=== PATIENT | female | born 1950 | race Caucasian/White ===

== ENCOUNTER 2019-08-30 17:29 | Inpatient (IN) | payer MEDICARE, MEDICAID ==
[~2019-08-30] VITALS: Ht 152.4 cm; Wt 64.0 kg
[~2019-08-30 17:29] MED LIST: AMLO2.5T4 PO; ARIP15TA2 PO; DIVA500T52 PO; ZIPR80CA2 PO
[2019-08-30] MEDS ORDERED: LORazepam 2 MG TABLET PO ONE (19:30)
[2019-08-30] MEDS ORDERED: HALOPERIDOL 5 MG TABLET PO ONE (19:30)
[2019-08-30] MEDS ORDERED: METF-446 PO (19:34)
[2019-08-30] MEDS ORDERED: EMPA10TA PO (19:34)
[2019-08-30] MEDS ORDERED: TRAZ-252 PO (19:34)
[2019-08-30] MEDS ORDERED: BIMA12.5OS OU (19:34)
[2019-08-30] MEDS ORDERED: LISI2.5T2 PO (19:34)
[2019-08-30] MEDS ORDERED: MIRA25TA PO (19:34)
[2019-08-30] MEDS ORDERED: TIMO5DRO7 OU (19:34)
[2019-08-30] MEDS ORDERED: EZET10TA13 PO (19:34)
[2019-08-30] MEDS ORDERED: OLAN20TA35 PO (19:34)
[2019-08-30] MEDS ORDERED: CARV3.1231 PO (19:34)
[2019-08-30] MEDS ORDERED: PRAV40TA4 PO (19:34)
[2019-08-30] MEDS ORDERED: DIVA-78 PO (19:34)
[2019-08-30 19:49] LABS: GLUCOSE,POINT OF CARE 202 MG/DL (70-110)
[2019-08-30 19:49] LABS: EOSINOPHILS % (AUTO) 1.1 % (1.0-6.0); HEMATOCRIT 35.8 % (36-46); HEMOGLOBIN 11.6 g/dL (12.0-16.0); LYMPHOCYTES # (AUTO) 1.2 K/uL (1.0-4.8); LYMPHOCYTES % (AUTO) 24.1 % (22.0-44.0); MEAN CORPUSCULAR HEMOGLOBIN 25.7 pg (26.0-34.0); MEAN CORPUSCULAR HGB CONC 32.4 G/dL (31.0-37.0); MEAN CORPUSCULAR VOLUME 79 fL (80-100); MONOCYTES # (AUTO) 0.4 K/uL (0.1-1.0); MONOCYTES % (AUTO) 8.5 % (2.0-9.0); NEUTROPHILS # (AUTO) 3.3 K/uL (1.8-7.7); NEUTROPHILS % (AUTO) 65.3 % (40.0-70.0); PLATELET COUNT (AUTO) 290 K/uL (150-450); RED BLOOD CELL COUNT(AUTO) 4.51 MIL/uL (4.00-5.20); RED CELL DISTRIBUTION WIDTH 15.7 % (11.5-14.5)
[2019-08-30 20:18] LABS: ALANINE AMINOTRANSFERASE 42 U/L (12-78); ALBUMIN 3.3 g/dL (3.4-5.0); ALKALINE PHOSPHATASE 97 U/L (46-116); ANION GAP 11 mmol/L (8-16); ASPARTATE AMINOTRANSFERASE 33 U/L (15-37); BILIRUBIN,TOTAL 0.3 mg/dL (0.1-1.0); CALCIUM, TOTAL 8.8 mg/dL (8.8-10.5); CARBON DIOXIDE 25 mmol/L (22-29); CHLORIDE 102 mmol/L (98-107); CREATININE 0.75 mg/dL (0.60-1.30); GLOMERULAR FILTR. RATE CALC > 60 mL/min (>60); GLUCOSE,RANDOM 206 mg/dL (70-110); SODIUM SERUM 138 mmol/L (136-145); TOTAL PROTEIN, SERUM 7.1 g/dL (6.4-8.2); UREA NITROGEN, BLOOD 23 mg/dL (7-18)
[2019-08-30 20:39] LABS: VALPROIC ACID < 3 mcg/mL (50-100)
[2019-08-31] MEDS ORDERED: ONDANSETRON HCL 4 MG TABLET PO PRN (10:15)
[2019-08-31] MEDS ORDERED: ALBUTEROL SULFATE HFA 90 MCG/PUFF 8 GM INHALER IH PRN (10:15)
[2019-08-31] MEDS ORDERED: LOPERAMIDE HCL 2 MG CAPSULE PO PRN (10:15)
[2019-08-31] MEDS ORDERED: CloNIDine HCL 0.1 MG TABLET PO PRN (10:15)
[2019-08-31] MEDS ORDERED: DOCUSATE SODIUM 100 MG CAPSULE PO PRN (10:15)
[2019-08-31] MEDS ORDERED: MAGNESIUM HYDROXIDE SUSPENSION 30 ML UDCUP PO PRN (10:15)
[2019-08-31] MEDS ORDERED: NICOTINE 14 MG/24 HOUR PATCH TD PRN (10:15)
[2019-08-31] MEDS ORDERED: PETROLATUM,WHITE 28 GM JELLY TP PRN (10:15)
[2019-08-31 11:27] VITALS: BP 139/94
[2019-08-31 11:44] VITALS: BP 139/94
[2019-08-31] MEDS: DIVALPROEX SODIUM 500 MG DR TABLET PO SCH ×2 (13:10→20:16)
[2019-08-31] MEDS: LISINOPRIL 5 MG TABLET PO SCH (13:10)
[2019-08-31] MEDS ORDERED: PNEUMOCOCCAL VACCINE POLYVALENT 0.5 ML VIAL [PPSV23] IM ONE (13:30)
[2019-08-31] MEDS ORDERED: POTASSIUM CHLORIDE 20 MEQ ER TABLET PO ONE (15:00)
[2019-08-31] MEDS ORDERED: DEXTROSE 50%-WATER 25 GM/50 ML SYRINGE IVP PRN (15:30)
[2019-08-31] MEDS: ACETAMINOPHEN 325 MG TABLET PO PRN (16:19)
[2019-08-31 16:24] VITALS: BP 140/95
[2019-08-31 16:29] LABS: GLUCOMETER DEV NAME(LOC) 3E.I 2; GLUCOSE,POINT OF CARE 386 MG/DL (70-110)
[2019-08-31] MEDS: TIMOLOL MALEATE 0.5% 5 ML OPHTHALMIC SOLUTION OU SCH (17:14)
[2019-08-31] MEDS: BIMATOPROST 0.01% 2.5 ML OPHTHALMIC SOLUTION OU SCH (17:14)
[2019-08-31] MEDS: INSULIN LISPRO 100 UNITS/ML SQ PRN ×2 (17:16→20:20)
[2019-08-31] MEDS: MetFORMIN HCL 500 MG TABLET PO SCH (17:28)
[2019-08-31] MEDS: TraZODone HCL 50 MG TABLET PO SCH (20:16)
[2019-08-31] MEDS: PRAVASTATIN SODIUM 40 MG TABLET PO SCH (20:16)
[2019-08-31] MEDS: OLANZapine 10 MG TABLET PO SCH (20:16)
[2019-08-31 20:26] LABS: GLUCOMETER DEV NAME(LOC) 3E.I 2; GLUCOSE,POINT OF CARE 235 MG/DL (70-110)
[2019-08-31 21:51] VITALS: BP 140/95
[2019-09-01] MEDS: MAG HYDROX/AL HYDROX/SIMETH ES 30 ML SUSPENSION UDCUP PO PRN ×2 (05:42→17:05)
[2019-09-01 05:51] LABS: GLUCOMETER DEV NAME(LOC) 3E.I 2; GLUCOSE,POINT OF CARE 241 MG/DL (70-110)
[2019-09-01] MEDS: INSULIN LISPRO 100 UNITS/ML SQ PRN ×3 (06:40→20:48)
[2019-09-01] MEDS: MetFORMIN HCL 500 MG TABLET PO SCH ×2 (06:46→16:26)
[2019-09-01] MEDS: CARVEDILOL 3.125 MG TABLET PO SCH (06:46)
[2019-09-01 07:37] LABS: CHOL/HDL RATIO 1.9 (3.9-5.7)
[2019-09-01 08:00] VITALS: BP 142/94
[2019-09-01] MEDS: LISINOPRIL 5 MG TABLET PO SCH (08:47)
[2019-09-01] MEDS: DIVALPROEX SODIUM 500 MG DR TABLET PO SCH ×2 (08:47→20:29)
[2019-09-01] MEDS: TIMOLOL MALEATE 0.5% 5 ML OPHTHALMIC SOLUTION OU SCH ×2 (08:48→16:26)
[2019-09-01] MEDS: EZETIMIBE 10 MG TABLET PO SCH (08:48)
[2019-09-01] MEDS: BIMATOPROST 0.01% 2.5 ML OPHTHALMIC SOLUTION OU SCH ×2 (08:49→16:26)
[2019-09-01] MEDS ORDERED: [UNRECOGNIZED DRUG - OTHER] PO SCH (09:00)
[2019-09-01] MEDS: QUEtiapine FUMARATE 100 MG TABLET PO PRN (10:16)
[2019-09-01 10:27] LABS: APPEARANCE,URINE CLEAR (CLEAR); BILIRUBIN,URINE NEGATIVE (NEGATIVE); GLUCOSE, URINE (UA) >=1000 mg/dL (NEGATIVE); KETONES,URINE NEGATIVE (NEGATIVE); LEUKOCYTE ESTERASE ,URINE NEGATIVE (NEGATIVE); NITRATE,URINE NEGATIVE (NEGATIVE); OCCULT BLOOD,URINE NEGATIVE (NEGATIVE); PH,URINE 5.5 (5.0-8.0); PROTEIN,URINE NEGATIVE (NEGATIVE); UROBILINOGEN,URINE 0.2 mg/dL (<=1.0)
[2019-09-01 10:37] LABS: AMPHET/METH SCREEN,URINE NEGATIVE (NEGATIVE); BARBITURATE SCREEN, URINE NEGATIVE (NEGATIVE); BENZODIAZEPINES SCREEN,URINE NEGATIVE (NEGATIVE); CANNABINOID SCREEN,URINE NEGATIVE (NEGATIVE); COCAINE SCREEN,URINE NEGATIVE (NEGATIVE); METHADONE SCREEN, URINE NEGATIVE (NEGATIVE); OPIATE SCREEN,URINE NEGATIVE (NEGATIVE)
[2019-09-01 10:38] LABS: PHENCYCLIDINE SCREEN,URINE NEGATIVE (NEGATIVE)
[2019-09-01 10:47] LABS: BACTERIA,URINE None Seen /HPF (None Seen); RBC,URINE None Seen /HPF (0-2); SQUAMOUS EPITHELIAL CELL,UR Few /LPF (None Seen); WBC,URINE None Seen /HPF (0-5)
[2019-09-01 10:47] LABS: GLUCOMETER DEV NAME(LOC) 3E.I 2; GLUCOSE,POINT OF CARE 204 MG/DL (70-110)
[2019-09-01 16:02] VITALS: BP 96/57
[2019-09-01] MEDS: TraZODone HCL 50 MG TABLET PO SCH (20:29)
[2019-09-01] MEDS: OLANZapine 10 MG TABLET PO SCH (20:29)
[2019-09-01] MEDS: PRAVASTATIN SODIUM 40 MG TABLET PO SCH (20:29)
[2019-09-01] MEDS: ZOLPIDEM TARTRATE 10 MG TABLET PO PRN (20:31)
[2019-09-01 20:51] LABS: GLUCOMETER DEV NAME(LOC) 3E.I 2; GLUCOSE,POINT OF CARE 232 MG/DL (70-110)
[2019-09-01] MEDS: IBUPROFEN 400 MG TABLET PO PRN (23:09)
[2019-09-01 23:10] VITALS: BP 120/80
[2019-09-02 06:12] LABS: GLUCOMETER DEV NAME(LOC) 3E.I 2; GLUCOSE,POINT OF CARE 243 MG/DL (70-110)
[2019-09-02] MEDS: ACETAMINOPHEN 325 MG TABLET PO PRN ×2 (06:34→17:14)
[2019-09-02] MEDS: CARVEDILOL 3.125 MG TABLET PO SCH (06:37)
[2019-09-02] MEDS: MetFORMIN HCL 500 MG TABLET PO SCH ×2 (06:37→16:43)
[2019-09-02] MEDS: INSULIN LISPRO 100 UNITS/ML SQ PRN ×4 (06:38→21:47)
[2019-09-02] MEDS: DIVALPROEX SODIUM 500 MG DR TABLET PO SCH ×2 (08:25→21:34)
[2019-09-02] MEDS: LISINOPRIL 5 MG TABLET PO SCH (08:25)
[2019-09-02] MEDS: QUEtiapine FUMARATE 100 MG TABLET PO PRN (08:30)
[2019-09-02] MEDS: BIMATOPROST 0.01% 2.5 ML OPHTHALMIC SOLUTION OU SCH ×2 (08:31→16:46)
[2019-09-02] MEDS: TIMOLOL MALEATE 0.5% 5 ML OPHTHALMIC SOLUTION OU SCH ×2 (08:31→16:46)
[2019-09-02] MEDS: EZETIMIBE 10 MG TABLET PO SCH (08:32)
[2019-09-02 10:34] VITALS: BP 136/82
[2019-09-02 12:18] LABS: GLUCOMETER DEV NAME(LOC) 3E.I 2; GLUCOSE,POINT OF CARE 180 MG/DL (70-110)
[2019-09-02 16:23] VITALS: BP 150/90
[2019-09-02 17:10] VITALS: BP 145/87
[2019-09-02 17:20] LABS: GLUCOMETER DEV NAME(LOC) 3E.I 2; GLUCOSE,POINT OF CARE 227 MG/DL (70-110)
[2019-09-02 18:14] VITALS: BP 140/85
[2019-09-02] MEDS: OLANZapine 10 MG TABLET PO SCH (21:34)
[2019-09-02] MEDS: TraZODone HCL 50 MG TABLET PO SCH (21:34)
[2019-09-02] MEDS: PRAVASTATIN SODIUM 40 MG TABLET PO SCH (21:34)
[2019-09-02 21:53] LABS: GLUCOMETER DEV NAME(LOC) 3E.I 2; GLUCOSE,POINT OF CARE 239 MG/DL (70-110)
[2019-09-03] MEDS: IBUPROFEN 400 MG TABLET PO PRN ×2 (01:05→23:55)
[2019-09-03] MEDS: ZOLPIDEM TARTRATE 10 MG TABLET PO PRN ×2 (01:05→23:56)
[2019-09-03 05:48] LABS: GLUCOMETER DEV NAME(LOC) 3E.I 2; GLUCOSE,POINT OF CARE 268 MG/DL (70-110)
[2019-09-03] MEDS: CARVEDILOL 3.125 MG TABLET PO SCH (06:53)
[2019-09-03] MEDS: MetFORMIN HCL 500 MG TABLET PO SCH ×2 (06:53→16:44)
[2019-09-03] MEDS: INSULIN LISPRO 100 UNITS/ML SQ PRN (06:54)
[2019-09-03 07:07] VITALS: BP 156/99
[2019-09-03] MEDS: EZETIMIBE 10 MG TABLET PO SCH (08:51)
[2019-09-03] MEDS: TIMOLOL MALEATE 0.5% 5 ML OPHTHALMIC SOLUTION OU SCH ×2 (08:52→16:43)
[2019-09-03] MEDS: BIMATOPROST 0.01% 2.5 ML OPHTHALMIC SOLUTION OU SCH ×2 (08:52→16:43)
[2019-09-03] MEDS: DIVALPROEX SODIUM 500 MG DR TABLET PO SCH ×2 (08:55→21:00)
[2019-09-03] MEDS: LISINOPRIL 5 MG TABLET PO SCH (08:55)
[2019-09-03] MEDS: LORazepam 2 MG TABLET PO PRN (08:55)
[2019-09-03] MEDS: QUEtiapine FUMARATE 100 MG TABLET PO PRN (08:56)
[2019-09-03 08:58] VITALS: BP 161/106
[2019-09-03 14:22] LABS: GLUCOMETER DEV NAME(LOC) 3E.I 2; GLUCOSE,POINT OF CARE 93 MG/DL (70-110)
[2019-09-03 16:42] VITALS: BP 132/97
[2019-09-03 17:00] LABS: GLUCOMETER DEV NAME(LOC) 3E.I 2; GLUCOSE,POINT OF CARE 111 MG/DL (70-110)
[2019-09-03] MEDS: PRAVASTATIN SODIUM 40 MG TABLET PO SCH (21:00)
[2019-09-03] MEDS: TraZODone HCL 50 MG TABLET PO SCH (21:00)
[2019-09-03] MEDS: OLANZapine 10 MG TABLET PO SCH (21:00)
[2019-09-03 22:02] LABS: GLUCOMETER DEV NAME(LOC) 3E.I 2; GLUCOSE,POINT OF CARE 94 MG/DL (70-110)
[2019-09-03 23:40] VITALS: BP 153/78
[2019-09-04] MEDS: ZOLPIDEM TARTRATE 10 MG TABLET PO PRN (00:17)
[2019-09-04] MEDS: MAG HYDROX/AL HYDROX/SIMETH ES 30 ML SUSPENSION UDCUP PO PRN (03:52)
[2019-09-04 05:58] LABS: GLUCOMETER DEV NAME(LOC) 3E.I 2; GLUCOSE,POINT OF CARE 159 MG/DL (70-110)
[2019-09-04] MEDS: INSULIN LISPRO 100 UNITS/ML SQ PRN ×4 (06:42→20:51)
[2019-09-04] MEDS: MetFORMIN HCL 500 MG TABLET PO SCH ×2 (06:49→17:20)
[2019-09-04] MEDS: CARVEDILOL 3.125 MG TABLET PO SCH (06:49)
[2019-09-04] MEDS: DIVALPROEX SODIUM 500 MG DR TABLET PO SCH ×2 (07:44→21:00)
[2019-09-04] MEDS: LISINOPRIL 5 MG TABLET PO SCH (07:44)
[2019-09-04] MEDS: LORazepam 2 MG TABLET PO PRN ×2 (07:44→17:20)
[2019-09-04] MEDS: QUEtiapine FUMARATE 100 MG TABLET PO PRN (07:44)
[2019-09-04] MEDS: EZETIMIBE 10 MG TABLET PO SCH (07:45)
[2019-09-04] MEDS: BIMATOPROST 0.01% 2.5 ML OPHTHALMIC SOLUTION OU SCH ×2 (07:46→17:19)
[2019-09-04] MEDS: TIMOLOL MALEATE 0.5% 5 ML OPHTHALMIC SOLUTION OU SCH ×2 (07:46→17:19)
[2019-09-04 09:54] VITALS: BP 147/98
[2019-09-04 12:09] LABS: GLUCOMETER DEV NAME(LOC) 3E.I 2; GLUCOSE,POINT OF CARE 183 MG/DL (70-110)
[2019-09-04 16:02] VITALS: BP 144/82
[2019-09-04 17:33] LABS: GLUCOMETER DEV NAME(LOC) 3E.I 2; GLUCOSE,POINT OF CARE 180 MG/DL (70-110)
[2019-09-04] MEDS: OLANZapine 10 MG TABLET PO SCH (21:00)
[2019-09-04] MEDS: TraZODone HCL 50 MG TABLET PO SCH (21:00)
[2019-09-04] MEDS: PRAVASTATIN SODIUM 40 MG TABLET PO SCH (21:00)
[2019-09-04 21:01] LABS: GLUCOMETER DEV NAME(LOC) 3E.I 2; GLUCOSE,POINT OF CARE 224 MG/DL (70-110)
[2019-09-05 05:23] LABS: GLUCOMETER DEV NAME(LOC) 3E.I 2; GLUCOSE,POINT OF CARE 156 MG/DL (70-110)
[2019-09-05] MEDS: MetFORMIN HCL 500 MG TABLET PO SCH ×2 (06:43→17:05)
[2019-09-05] MEDS: CARVEDILOL 3.125 MG TABLET PO SCH (06:43)
[2019-09-05] MEDS: INSULIN LISPRO 100 UNITS/ML SQ PRN ×3 (06:44→21:28)
[2019-09-05] MEDS: DIVALPROEX SODIUM 500 MG DR TABLET PO SCH ×2 (08:16→20:41)
[2019-09-05] MEDS: LISINOPRIL 5 MG TABLET PO SCH (08:16)
[2019-09-05] MEDS: EZETIMIBE 10 MG TABLET PO SCH (08:16)
[2019-09-05] MEDS: BIMATOPROST 0.01% 2.5 ML OPHTHALMIC SOLUTION OU SCH ×2 (08:16→17:06)
[2019-09-05] MEDS: TIMOLOL MALEATE 0.5% 5 ML OPHTHALMIC SOLUTION OU SCH ×2 (08:17→17:06)
[2019-09-05 10:35] VITALS: BP 130/81
[2019-09-05 11:02] LABS: GLUCOMETER DEV NAME(LOC) 3E.I 2; GLUCOSE,POINT OF CARE 236 MG/DL (70-110)
[2019-09-05 12:15] VITALS: BP 153/90
[2019-09-05] MEDS: IBUPROFEN 400 MG TABLET PO PRN ×2 (12:16→23:56)
[2019-09-05 17:03] LABS: GLUCOMETER DEV NAME(LOC) 3E.I 2; GLUCOSE,POINT OF CARE 123 MG/DL (70-110)
[2019-09-05 17:04] VITALS: BP 146/95
[2019-09-05] MEDS: ACETAMINOPHEN 325 MG TABLET PO PRN (17:05)
[2019-09-05 17:09] VITALS: BP 146/95
[2019-09-05] MEDS: PRAVASTATIN SODIUM 40 MG TABLET PO SCH (20:41)
[2019-09-05] MEDS: TraZODone HCL 50 MG TABLET PO SCH (20:41)
[2019-09-05] MEDS: OLANZapine 10 MG TABLET PO SCH (20:41)
[2019-09-05 21:30] LABS: GLUCOMETER DEV NAME(LOC) 3E.I 2; GLUCOSE,POINT OF CARE 296 MG/DL (70-110)
[2019-09-05 23:50] VITALS: BP_SYST 129; BP_DIAS 76; BP_DIAS 78
[2019-09-05] MEDS: MAG HYDROX/AL HYDROX/SIMETH ES 30 ML SUSPENSION UDCUP PO PRN (23:52)
[2019-09-05] MEDS: ZOLPIDEM TARTRATE 10 MG TABLET PO PRN (23:52)
[2019-09-06 06:08] LABS: GLUCOMETER DEV NAME(LOC) 3E.I 2; GLUCOSE,POINT OF CARE 174 MG/DL (70-110)
[2019-09-06] MEDS: MetFORMIN HCL 500 MG TABLET PO SCH ×2 (06:38→17:30)
[2019-09-06] MEDS: CARVEDILOL 3.125 MG TABLET PO SCH (06:42)
[2019-09-06] MEDS: INSULIN LISPRO 100 UNITS/ML SQ PRN ×4 (06:42→21:30)
[2019-09-06] MEDS: EZETIMIBE 10 MG TABLET PO SCH (08:18)
[2019-09-06] MEDS: LISINOPRIL 5 MG TABLET PO SCH (08:18)
[2019-09-06] MEDS: DIVALPROEX SODIUM 500 MG DR TABLET PO SCH ×2 (08:18→19:01)
[2019-09-06 08:19] VITALS: BP 124/70
[2019-09-06] MEDS: ACETAMINOPHEN 325 MG TABLET PO PRN (08:19)
[2019-09-06] MEDS: TIMOLOL MALEATE 0.5% 5 ML OPHTHALMIC SOLUTION OU SCH ×2 (08:20→17:29)
[2019-09-06] MEDS: BIMATOPROST 0.01% 2.5 ML OPHTHALMIC SOLUTION OU SCH ×2 (08:23→17:29)
[2019-09-06 11:09] LABS: GLUCOMETER DEV NAME(LOC) 3E.I 2; GLUCOSE,POINT OF CARE 280 MG/DL (70-110)
[2019-09-06 12:38] VITALS: BP 111/69
[2019-09-06] MEDS: IBUPROFEN 400 MG TABLET PO PRN ×2 (12:38→19:00)
[2019-09-06 16:37] VITALS: BP 108/65
[2019-09-06 17:49] LABS: GLUCOMETER DEV NAME(LOC) 3E.I 2; GLUCOSE,POINT OF CARE 295 MG/DL (70-110)
[2019-09-06] MEDS: TraZODone HCL 50 MG TABLET PO SCH (19:00)
[2019-09-06] MEDS: OLANZapine 10 MG TABLET PO SCH (19:00)
[2019-09-06] MEDS: PRAVASTATIN SODIUM 40 MG TABLET PO SCH (19:00)
[2019-09-06] MEDS: GuaiFENesin/D-METHORPHAN [SUGAR-FREE] 200-20MG/10 ML SYRUP UDCUP PO PRN (21:19)
[2019-09-06] MEDS: MAG HYDROX/AL HYDROX/SIMETH ES 30 ML SUSPENSION UDCUP PO PRN (23:40)
[2019-09-06] MEDS: ZOLPIDEM TARTRATE 10 MG TABLET PO PRN (23:40)
[2019-09-06 23:42] VITALS: BP 107/62
[2019-09-07 00:40] VITALS: BP 133/83
[2019-09-07 05:58] LABS: GLUCOMETER DEV NAME(LOC) 3E.I 2; GLUCOSE,POINT OF CARE 178 MG/DL (70-110)
[2019-09-07 06:31] LABS: GLUCOMETER DEV NAME(LOC) 3E.I 2; GLUCOSE,POINT OF CARE 190 MG/DL (70-110)
[2019-09-07 07:03] VITALS: BP 129/76
[2019-09-07] MEDS: CARVEDILOL 3.125 MG TABLET PO SCH (07:05)
[2019-09-07] MEDS: MetFORMIN HCL 500 MG TABLET PO SCH ×2 (07:05→17:31)
[2019-09-07] MEDS: INSULIN LISPRO 100 UNITS/ML SQ PRN ×3 (07:16→17:29)
[2019-09-07 08:06] VITALS: BP 126/71
[2019-09-07] MEDS: LISINOPRIL 5 MG TABLET PO SCH (08:29)
[2019-09-07] MEDS: TIMOLOL MALEATE 0.5% 5 ML OPHTHALMIC SOLUTION OU SCH ×2 (08:29→17:00)
[2019-09-07] MEDS: DIVALPROEX SODIUM 500 MG DR TABLET PO SCH ×2 (08:29→21:22)
[2019-09-07] MEDS: EZETIMIBE 10 MG TABLET PO SCH (08:29)
[2019-09-07] MEDS: BIMATOPROST 0.01% 2.5 ML OPHTHALMIC SOLUTION OU SCH ×2 (08:34→16:14)
[2019-09-07 11:21] LABS: GLUCOMETER DEV NAME(LOC) 3E.I 2; GLUCOSE,POINT OF CARE 261 MG/DL (70-110)
[2019-09-07] MEDS: IBUPROFEN 400 MG TABLET PO PRN (16:15)
[2019-09-07 16:16] VITALS: BP 101/68
[2019-09-07] MEDS: LORazepam 1 MG TABLET PO PRN (16:20)
[2019-09-07] MEDS: GuaiFENesin/D-METHORPHAN [SUGAR-FREE] 200-20MG/10 ML SYRUP UDCUP PO PRN (17:31)
[2019-09-07 17:32] LABS: GLUCOMETER DEV NAME(LOC) 3E.I 2; GLUCOSE,POINT OF CARE 207 MG/DL (70-110)
[2019-09-07] MEDS: MAG HYDROX/AL HYDROX/SIMETH ES 30 ML SUSPENSION UDCUP PO PRN (19:29)
[2019-09-07] MEDS: PRAVASTATIN SODIUM 40 MG TABLET PO SCH (21:22)
[2019-09-07] MEDS: OLANZapine 10 MG TABLET PO SCH (21:22)
[2019-09-07] MEDS: TraZODone HCL 50 MG TABLET PO SCH (21:22)
[2019-09-07 21:44] LABS: GLUCOMETER DEV NAME(LOC) 3E.I 2; GLUCOSE,POINT OF CARE 130 MG/DL (70-110)
[2019-09-08 04:15] VITALS: BP 131/77
[2019-09-08] MEDS: ACETAMINOPHEN 325 MG TABLET PO PRN (04:18)
[2019-09-08 06:17] LABS: GLUCOMETER DEV NAME(LOC) 3E.I 2; GLUCOSE,POINT OF CARE 209 MG/DL (70-110)
[2019-09-08] MEDS: MetFORMIN HCL 500 MG TABLET PO SCH ×2 (06:42→16:23)
[2019-09-08] MEDS: CARVEDILOL 3.125 MG TABLET PO SCH (06:42)
[2019-09-08] MEDS: INSULIN LISPRO 100 UNITS/ML SQ PRN ×2 (06:45→17:07)
[2019-09-08 08:00] VITALS: BP 144/83
[2019-09-08] MEDS: LISINOPRIL 5 MG TABLET PO SCH (08:06)
[2019-09-08] MEDS: EZETIMIBE 10 MG TABLET PO SCH (08:07)
[2019-09-08] MEDS: TIMOLOL MALEATE 0.5% 5 ML OPHTHALMIC SOLUTION OU SCH ×2 (08:07→16:23)
[2019-09-08] MEDS: DIVALPROEX SODIUM 500 MG DR TABLET PO SCH ×2 (08:07→20:13)
[2019-09-08] MEDS: BIMATOPROST 0.01% 2.5 ML OPHTHALMIC SOLUTION OU SCH ×2 (08:07→16:22)
[2019-09-08] MEDS: LORazepam 1 MG TABLET PO PRN (08:11)
[2019-09-08] MEDS: QUEtiapine FUMARATE 100 MG TABLET PO PRN (08:49)
[2019-09-08 12:08] LABS: GLUCOMETER DEV NAME(LOC) 3E.I 2; GLUCOSE,POINT OF CARE 167 MG/DL (70-110)
[2019-09-08 16:55] LABS: GLUCOMETER DEV NAME(LOC) 3E.I 2; GLUCOSE,POINT OF CARE 258 MG/DL (70-110)
[2019-09-08] MEDS: TraZODone HCL 50 MG TABLET PO SCH (20:13)
[2019-09-08] MEDS: OLANZapine 10 MG TABLET PO SCH (20:13)
[2019-09-08] MEDS: PRAVASTATIN SODIUM 40 MG TABLET PO SCH (21:44)
[2019-09-08 21:55] LABS: GLUCOMETER DEV NAME(LOC) 3E.I 2; GLUCOSE,POINT OF CARE 120 MG/DL (70-110)
[2019-09-08 23:13] VITALS: BP 100/60
[2019-09-09 01:40] VITALS: BP 121/78
[2019-09-09] MEDS: ZOLPIDEM TARTRATE 10 MG TABLET PO PRN (01:41)
[2019-09-09] MEDS: IBUPROFEN 400 MG TABLET PO PRN ×2 (01:41→20:28)
[2019-09-09 06:16] LABS: GLUCOMETER DEV NAME(LOC) 3E.I 2; GLUCOSE,POINT OF CARE 217 MG/DL (70-110)
[2019-09-09 06:45] VITALS: BP 134/64
[2019-09-09] MEDS: CARVEDILOL 3.125 MG TABLET PO SCH (06:46)
[2019-09-09] MEDS: MetFORMIN HCL 500 MG TABLET PO SCH ×2 (06:46→16:41)
[2019-09-09] MEDS: INSULIN LISPRO 100 UNITS/ML SQ PRN ×4 (06:57→20:50)
[2019-09-09 08:00] VITALS: BP 122/69
[2019-09-09] MEDS: BIMATOPROST 0.01% 2.5 ML OPHTHALMIC SOLUTION OU SCH ×2 (09:01→16:41)
[2019-09-09] MEDS: TIMOLOL MALEATE 0.5% 5 ML OPHTHALMIC SOLUTION OU SCH ×2 (09:01→16:57)
[2019-09-09] MEDS: DIVALPROEX SODIUM 500 MG DR TABLET PO SCH ×2 (09:02→20:10)
[2019-09-09] MEDS: LORazepam 1 MG TABLET PO PRN (09:02)
[2019-09-09] MEDS: QUEtiapine FUMARATE 100 MG TABLET PO PRN (09:02)
[2019-09-09] MEDS: LISINOPRIL 5 MG TABLET PO SCH (09:02)
[2019-09-09] MEDS: EZETIMIBE 10 MG TABLET PO SCH (09:02)
[2019-09-09 11:11] LABS: GLUCOMETER DEV NAME(LOC) 3E.I 2; GLUCOSE,POINT OF CARE 159 MG/DL (70-110)
[2019-09-09 16:01] VITALS: BP 117/70
[2019-09-09 17:24] LABS: GLUCOMETER DEV NAME(LOC) 3E.I 2; GLUCOSE,POINT OF CARE 191 MG/DL (70-110)
[2019-09-09] MEDS: PRAVASTATIN SODIUM 40 MG TABLET PO SCH (20:09)
[2019-09-09] MEDS: OLANZapine 10 MG TABLET PO SCH (20:10)
[2019-09-09] MEDS: TraZODone HCL 50 MG TABLET PO SCH (20:10)
[2019-09-09 20:25] VITALS: BP 117/70
[2019-09-09 20:45] LABS: GLUCOMETER DEV NAME(LOC) 3E.I 2; GLUCOSE,POINT OF CARE 197 MG/DL (70-110)
[2019-09-09] MEDS: MAG HYDROX/AL HYDROX/SIMETH ES 30 ML SUSPENSION UDCUP PO PRN (20:52)
[2019-09-10 01:00] VITALS: BP 128/73
[2019-09-10] MEDS: ACETAMINOPHEN 325 MG TABLET PO PRN (01:04)
[2019-09-10 05:41] LABS: GLUCOMETER DEV NAME(LOC) 3E.I 2; GLUCOSE,POINT OF CARE 160 MG/DL (70-110)
[2019-09-10] MEDS: INSULIN LISPRO 100 UNITS/ML SQ PRN ×4 (06:34→20:18)
[2019-09-10] MEDS: MetFORMIN HCL 500 MG TABLET PO SCH ×2 (06:34→16:38)
[2019-09-10] MEDS: CARVEDILOL 3.125 MG TABLET PO SCH (06:34)
[2019-09-10 08:00] VITALS: BP 140/94
[2019-09-10] MEDS: TIMOLOL MALEATE 0.5% 5 ML OPHTHALMIC SOLUTION OU SCH ×2 (09:00→16:40)
[2019-09-10] MEDS: BIMATOPROST 0.01% 2.5 ML OPHTHALMIC SOLUTION OU SCH ×2 (09:00→16:39)
[2019-09-10] MEDS: LORazepam 1 MG TABLET PO PRN (09:54)
[2019-09-10] MEDS: EZETIMIBE 10 MG TABLET PO SCH (09:54)
[2019-09-10] MEDS: DIVALPROEX SODIUM 500 MG DR TABLET PO SCH ×2 (09:54→20:13)
[2019-09-10] MEDS: LISINOPRIL 5 MG TABLET PO SCH (09:55)
[2019-09-10 11:10] LABS: GLUCOMETER DEV NAME(LOC) 3E.I 2; GLUCOSE,POINT OF CARE 205 MG/DL (70-110)
[2019-09-10 16:32] VITALS: BP 128/79
[2019-09-10 16:41] LABS: GLUCOMETER DEV NAME(LOC) 3E.I 2; GLUCOSE,POINT OF CARE 286 MG/DL (70-110)
[2019-09-10] MEDS: TraZODone HCL 50 MG TABLET PO SCH (20:12)
[2019-09-10] MEDS: PRAVASTATIN SODIUM 40 MG TABLET PO SCH (20:12)
[2019-09-10] MEDS: OLANZapine 10 MG TABLET PO SCH (20:12)
[2019-09-10 20:29] LABS: GLUCOMETER DEV NAME(LOC) 3E.I 2; GLUCOSE,POINT OF CARE 144 MG/DL (70-110)
[2019-09-11 00:45] VITALS: BP 145/81
[2019-09-11] MEDS: ZOLPIDEM TARTRATE 10 MG TABLET PO PRN (00:53)
[2019-09-11] MEDS: MAG HYDROX/AL HYDROX/SIMETH ES 30 ML SUSPENSION UDCUP PO PRN (00:53)
[2019-09-11] MEDS: ACETAMINOPHEN 325 MG TABLET PO PRN ×3 (00:53→16:30)
[2019-09-11 05:42] LABS: GLUCOMETER DEV NAME(LOC) 3E.I 2; GLUCOSE,POINT OF CARE 148 MG/DL (70-110)
[2019-09-11] MEDS: CARVEDILOL 3.125 MG TABLET PO SCH (06:40)
[2019-09-11] MEDS: MetFORMIN HCL 500 MG TABLET PO SCH ×2 (06:40→16:30)
[2019-09-11] MEDS: INSULIN LISPRO 100 UNITS/ML SQ PRN ×3 (06:41→17:29)
[2019-09-11] MEDS: DIVALPROEX SODIUM 500 MG DR TABLET PO SCH ×2 (08:23→20:07)
[2019-09-11] MEDS: LISINOPRIL 5 MG TABLET PO SCH (08:23)
[2019-09-11] MEDS: EZETIMIBE 10 MG TABLET PO SCH (08:23)
[2019-09-11] MEDS: BIMATOPROST 0.01% 2.5 ML OPHTHALMIC SOLUTION OU SCH ×2 (08:24→16:29)
[2019-09-11] MEDS: TIMOLOL MALEATE 0.5% 5 ML OPHTHALMIC SOLUTION OU SCH ×2 (08:24→16:29)
[2019-09-11 09:28] VITALS: BP 131/77
[2019-09-11 11:18] LABS: GLUCOMETER DEV NAME(LOC) 3E.I 2; GLUCOSE,POINT OF CARE 180 MG/DL (70-110)
[2019-09-11 16:03] LABS: GLUCOMETER DEV NAME(LOC) 3E.I 2; GLUCOSE,POINT OF CARE 168 MG/DL (70-110)
[2019-09-11 16:17] VITALS: BP 132/76
[2019-09-11 16:30] VITALS: BP 120/83
[2019-09-11] MEDS: TraZODone HCL 50 MG TABLET PO SCH (20:07)
[2019-09-11] MEDS: PRAVASTATIN SODIUM 40 MG TABLET PO SCH (20:07)
[2019-09-11] MEDS: OLANZapine 10 MG TABLET PO SCH (20:07)
[2019-09-11 21:59] LABS: GLUCOMETER DEV NAME(LOC) 3E.I 2; GLUCOSE,POINT OF CARE 130 MG/DL (70-110)
[2019-09-12] MEDS: ACETAMINOPHEN 325 MG TABLET PO PRN ×2 (06:25→12:22)
[2019-09-12 06:26] VITALS: BP 139/80
[2019-09-12] MEDS: MetFORMIN HCL 500 MG TABLET PO SCH ×2 (06:50→16:18)
[2019-09-12] MEDS: INSULIN LISPRO 100 UNITS/ML SQ PRN (06:50)
[2019-09-12] MEDS: CARVEDILOL 3.125 MG TABLET PO SCH (06:50)
[2019-09-12 06:52] LABS: GLUCOMETER DEV NAME(LOC) 3E.I 2; GLUCOSE,POINT OF CARE 182 MG/DL (70-110)
[2019-09-12] MEDS: LISINOPRIL 5 MG TABLET PO SCH (08:26)
[2019-09-12] MEDS: DIVALPROEX SODIUM 500 MG DR TABLET PO SCH (08:26)
[2019-09-12] MEDS: BIMATOPROST 0.01% 2.5 ML OPHTHALMIC SOLUTION OU SCH ×2 (08:27→16:18)
[2019-09-12] MEDS: EZETIMIBE 10 MG TABLET PO SCH (08:27)
[2019-09-12] MEDS: TIMOLOL MALEATE 0.5% 5 ML OPHTHALMIC SOLUTION OU SCH ×2 (08:28→16:21)
[2019-09-12 09:00] VITALS: BP 145/88
[2019-09-12 11:18] LABS: GLUCOMETER DEV NAME(LOC) 3E.I 2; GLUCOSE,POINT OF CARE 121 MG/DL (70-110)
[2019-09-12] MEDS ORDERED: TRAZ-252 PO (14:59)
[2019-09-12] MEDS ORDERED: OLAN10TA20 PO (14:59)
[2019-09-12] MEDS ORDERED: DIVA-78 PO (14:59)
[2019-09-12 17:23] LABS: GLUCOMETER DEV NAME(LOC) 3E.I 2; GLUCOSE,POINT OF CARE 179 MG/DL (70-110)
== END 2019-09-12 17:45 | disposition home or self-care (01) | DRG 885 ==
LOC: EMS 17:29 → 3EI 08-31 04:00
DX: F20.0 Paranoid schizophrenia (principal); D64.9 Anemia, unspecified; E11.9 Type 2 diabetes mellitus without complications; E78.00 Pure hypercholesterolemia, unspecified; E78.5 Hyperlipidemia, unspecified; E87.6 Hypokalemia; F31.9 Bipolar disorder, unspecified; M54.9 Dorsalgia, unspecified; G89.29 Other chronic pain; I10 Essential (primary) hypertension; M19.90 Unspecified osteoarthritis, unspecified site; Z79.899 Other long term (current) drug therapy; Z91.19 Patient's noncompliance with other medical treatment and regimen; Z91.81 History of falling
CPT/HCPCS: 97116; 97162; 97166; 97535; G0480